=== PATIENT | female | born 1985 | race American Indian/Alaskan Native ===

== ENCOUNTER 2018-11-07 17:06 | Inpatient (IN) | payer OTHER ==
[2018-11-07] MEDS ORDERED: ZOFRAN IV PRN (19:19)
[2018-11-07] MEDS ORDERED: COLACE PO PRN (19:19)
[2018-11-07] MEDS ORDERED: MILK OF MAGNESIA PO PRN (19:19)
[2018-11-07] MEDS ORDERED: TYLENOL PO PRN (19:19)
[2018-11-07] MEDS ORDERED: MYLICON PO PRN (19:19)
[2018-11-07] MEDS ORDERED: ALUM-MAG HYDROX-SIMETH 200-200-20MG/5ML PO PRN (19:19)
[2018-11-07] MEDS ORDERED: AMBIEN PO PRN (19:19)
--- NOTE | 2018-11-07 20:26 | Ultrasound Report ---
PROCEDURE: US OB LIMITED TECHNIQUE: Real-time limited sonographic examination was performed for evaluation of for each fetus with image documentation (1 or more fetuses). HISTORY: labor COMPARISONS: None . FINDINGS: FETUS IUP: Single living intrauterine . Position: Cephalic . Placental position: Anterior, without previa . Amniotic fluid volume: Amniotic fluid index is 6.3 cm Heart rate and rhythm: 149 BPM, Regular . IMPRESSION: Amniotic fluid index is 6.3 cm This document is electronically signed by Bud Mosley MD., November 07 2018 08:24:53 PM ET
--- NOTE | 2018-11-07 20:27 | Ultrasound Report ---
PROCEDURE: US OB BPP WO NON-STRESS TECHNIQUE: Sonographic evaluation for breathing, movement, tone, and amniotic flui d volume was performed. HISTORY: Oligohydramnios COMPARISONS: None . FINDINGS: FETUS Amniotic fluid volume Normal-score 2. At least one vertical pocket >2 cm or more in vertical axis . breathing: Normal-score 2 . movement: Normal-score 2 . tone: Normal-score 2 . Score: 8 of 8 . IMPRESSION: Normal biophysical profile . This document is electronically signed by Bud Mosley MD., November 07 2018 08:25:33 PM ET
[2018-11-07] MEDS: CELESTONE SOLUSPAN IM SCH (20:30)
[2018-11-07 20:54] LABS: Basophils # (Auto) 0.1 K/mm3 (0.0-0.1); Basophils % (Auto) 0.7 % (0.0-1.8); Eosinophils # (Auto) 0.3 K/mm3 (0.0-0.4); Eosinophils % (Auto) 3.5 % (0.0-4.3); Hematocrit 39.5 % (30.3-42.9); Hemoglobin 13.6 gm/dl (10.1-14.3); Lymphocytes # (Auto) 2.5 K/mm3 (1.2-5.4); Lymphocytes % (Auto) 28.2 % (13.4-35.0); Mean Corpuscular HGB Conc 35 % (30-34); Mean Corpuscular Volume 92 fl (79-97); Monocytes # (Auto) 0.6 K/mm3 (0.0-0.8); Platelet Count 174 K/mm3 (140-440); Red Blood Count 4.28 M/mm3 (3.65-5.03); Red Cell Distribution Width 14.1 % (13.2-15.2)
[2018-11-08] MEDS: LACTATED RINGERS 1,000 ML IV SCH (05:00)
--- NOTE | 2018-11-08 09:18 | History and Physical Report ---
History of Present Illness Date of examination: 11/08/18 Date of admission: 11/07/18 21:48 Chief complaint: low amnionic fluid History of present illness: 33 yo G P at 36+4 weeks came in after US showed a low fluid of 5cm. She was called in and repeat was 6.3cm. She was admitted for observation. Past History Past Medical History: no pertinent history Past Surgical History: no surgical history Family/Genetic History: none Social history: . denies: smoking, alcohol abuse, prescription drug abuse - Obstetrical History Expected Date of Delivery: 12/04/18 Actual Gestation: 36 Week(s) 2 Day(s) : 3 Para: 2 Hx # Term Pregnancies: 2 Number of Pregnancies: 0 Spontaneous Abortions: 0 Induced : 0 Number of Living Children: 2 Medications and Allergies Allergies Allergy/AdvReac Type Severity Reaction Status Date / Time No Known Allergies Allergy Unverified 11/07/18 17:11 Active Meds: Active Medications Acetaminophen (Tylenol) 650 mg PO Q4H PRN PRN Reason: Pain MILD(1-3)/Fever >100.5/INIGUEZ Al Hydrox/Mg Hydrox/Simethicone (Alum-Mag Hydrox-Simeth [id number]/5ml) 30 ml PO Q6H PRN PRN Reason: Indigestion Betamethasone Acet/Betameth SodPhos (Celestone Soluspan) 12 mg IM Q24H [facility] Stop: 11/08/18 20:01 Last Admin: 11/07/18 20:30 Dose: 12 mg Documented by: Docusate Sodium (Colace) 100 mg PO Q12H PRN PRN Reason: Constipation Lactated Ringer's (Lactated Ringers) 1,000 mls @ 125 mls/hr IV DIRECT [facility] Last Admin: 11/08/18 05:00 Dose: 125 mls/hr Documented by: Magnesium Hydroxide (Milk Of Magnesia) 30 ml PO QHS PRN PRN Reason: Laxative Effect Multivitamins/Iron/Calcium ( Vitamin) 1 each PO QDAY [facility] Ondansetron HCl (Zofran) 4 mg IV Q6H PRN PRN Reason: Nausea And Vomiting Simethicone (Mylicon) 80 mg PO Q6H PRN PRN Reason: Gas pain Zolpidem Tartrate (Ambien) 10 mg PO ONCE PRN PRN Reason: Sleep Review of Systems All systems: negative - Vital Signs Vital signs: Vital Signs Pulse BP 81 101/56 11/07/18 17:27 11/07/18 17:27 Temp Pulse Resp BP Pulse Ox 98.3 F 90 16 96/51 11/07/18 18:05 11/08/18 08:42 11/07/18 18:05 11/08/18 08:42 - Physical Exam Breasts: Positive: normal Cardiovascular: Regular rate, Normal S1 Lungs: Positive: Clear to auscultation, Normal air movement Abdomen: Positive: normal appearance, soft, normal bowel sounds. Negative: distention, tenderness, guarding Genitourinary (Female): Positive: normal external genitalia, normal perenium Vagina: Positive: normal moisture Uterus: Positive: normal size Deep Tendon Reflex Grade: Normal +2 - Obstetrical FHR: category 1 Cervical Dilatation: 1 Cervical Effacement Percentage: 60 station: -4 Uterine Contraction Pattern: Absent Uterine Tone Measurement Phase: Resting Results Result Diagrams: 11/07/18 20:38 Abnormal lab results 11/07/18 Range/Units 20:38 MCHC 35 H (30-34) % All other labs normal. Ultrasound: report reviewed Assessment and Plan A/P IUP 36+2 weeks previous US low fluid from 5 to 6.3 s/p 1 betamethasone await next dose today BPP 03/20 consult with APARNA repeat BHARATI today
[2018-11-08] MEDS: PRENATAL VITAMIN PO SCH (10:02)
--- NOTE | 2018-11-08 12:24 | Ultrasound Report ---
ULTRASOUND OB LIMITED History: Oligohydramnios Technique: Transabdominal ultrasound with Doppler interrogation. Gestation: Single Position: Cephalic Amniotic Fluid: Slightly decreased BHARATI = 6.7 cm Heart Rate: 137 BPM
--- NOTE | 2018-11-08 12:25 | Ultrasound Report ---
ULTRASOUND BIOPHYSICAL PROFILE: History: Oligohydramnios Technique: Transabdominal ultrasound with Doppler interrogation. 0 - breathing movements 2 - movements 2 - posture and tone 2 - Qualitative amniotic fluid volume 6 - TOTAL SCORE OF POSSIBLE 8 Heart Rate (bpm) 135
--- NOTE | 2018-11-08 12:53 | Event Note ---
Date: 11/08/18 Patient had US and showed 6.7 cm BHARATI. Spoke with MFM and recommended delivery for AMA and oligohydramnios. Will await second dose of steroids and initiate IOL with cervidil.
[2018-11-08] MEDS: CELESTONE SOLUSPAN IM SCH (19:59)
[2018-11-09] MEDS ORDERED: CERVIDIL VG ONE (00:42)
[2018-11-09] MEDS: LACTATED RINGERS 1,000 ML IV SCH ×2 (12:14→19:54)
[2018-11-09] MEDS: PRENATAL VITAMIN PO SCH (12:15)
[2018-11-09] MEDS ORDERED: MINERAL OIL PO PRN (14:04)
[2018-11-09] MEDS ORDERED: BRETHINE SUB-Q PRN (14:04)
[2018-11-09] MEDS ORDERED: BRETHINE IVP PRN (14:04)
[2018-11-09] MEDS: STADOL IV PRN (14:18)
[2018-11-09] MEDS ORDERED: LACTATED RINGERS 1,000 ML IV SCH (15:00)
[2018-11-09] MEDS ORDERED: PITOCin/NS 20 UNIT/1000ML DRIP 20 UNITS/1,000 ML BAG IV SCH (15:00)
[2018-11-09] MEDS: PITOCin/NS 30 UNIT/500ML 30 UNITS/500 ML BAG IV SCH (15:27)
[2018-11-10] MEDS: LACTATED RINGERS 1,000 ML IV SCH (03:54)
--- NOTE | 2018-11-10 09:19 | Progress Note ---
Assessment and Plan Patient has been being induced for over 24 hours but is not in labor yet. Will allow a respite for shower and nourishment. Restart process later today. Subjective - Subjective Date of service: 11/10/18 Principal diagnosis: Oligohydramnios Interval history: Patient presents with oligohydramnios at 36 plus weeks. Patient received 2 doses of steroids and was advised to be induced by APA. Patient received cervidil at 238. It was removed in the afternoon. At the time she was found to be 1-2cm and pitocin was initiated. Patient reports: contractions Objective - Vital Signs Vital Signs: Vital Signs - 12hr 11/09/18 11/09/18 11/10/18 23:37 23:38 03:46 Temperature 98.4 F 98.2 F Pulse Rate 82 83 77 Respiratory 16 16 Rate Blood Pressure 88/48 92/54 97/56 - Exam Lungs: Clear to auscultation, Normal air movement Abdomen: Present: normal appearance, soft. Absent: distention, tenderness Uterus: Present: normal FHR: auscultation normal Cervical Dilatation: 1.5 Cervical Effacement Percentage: 50 station: -3 Uterine Contraction Pattern: Irregular Uterine Contraction Intensity: Moderate - Labs Labs: Abnormal Labs 11/07/18 20:38 MCHC 35 H
[2018-11-10] MEDS: PRENATAL VITAMIN PO SCH (11:07)
[2018-11-11] MEDS: PITOCin/NS 30 UNIT/500ML 30 UNITS/500 ML BAG IV SCH (08:45)
--- NOTE | 2018-11-11 10:17 | Progress Note ---
Assessment and Plan A/P IUP 36+5 weeks iol for oligo and AMA s/p cervidil GBS unknown- Amp continue with pitocin expect vaginal delivery Subjective - Subjective Date of service: 11/11/18 Principal diagnosis: Oligohydramnios Interval history: 33 yo G P at 36+4 weeks came in after US showed a low fluid of 5cm. She was called in and repeat was 6.3cm. She was admitted for observation. Patient reports: movement normal, contractions, no new complaints, no loss of fluid, no vaginal bleeding Objective - Exam Breasts: normal Cardiovascular: Regular rate, Normal S1 Lungs: Clear to auscultation, Normal air movement Abdomen: Present: normal appearance, soft, normal bowel sounds. Absent: distention, tenderness, guarding Vulva: both: normal Uterus: Present: normal, firm. Absent: bogginess, tenderness FHR: auscultation normal Cervical Dilatation: 2 Cervical Effacement Percentage: 50 station: -3 Uterine Contraction Pattern: Irregular Uterine Tone Measurement Phase: Contraction Deep Tendon Reflex Grade: Normal +2 - Labs Labs: Abnormal Labs 11/07/18 20:38 MCHC 35 H
[2018-11-11] MEDS ORDERED: AMPICILLIN/NS 2 GM/100 ML 2 GM/100 ML BAG IV ONE (11:00)
[2018-11-11] MEDS: STADOL IV PRN ×2 (12:52→17:33)
[2018-11-11] MEDS ORDERED: NARCAN 2 MG/2 ML IV PRN (14:13)
[2018-11-11] MEDS ORDERED: AMPICILLIN/NS 1 GM/50 ML 1 GM/50 ML BAG IV SCH (15:00)
[2018-11-11] MEDS ORDERED: fentaNYL-BUPIV 2 MCG/ML-0.125% 200 MCG/100 ML BAG EPIDURAL SCH (15:00)
[2018-11-11] MEDS ORDERED: PHENERGAN PR PRN ×2 (15:30→21:11)
[2018-11-11] MEDS ORDERED: ZOFRAN IV PRN ×2 (15:30→21:11)
[2018-11-11] MEDS ORDERED: NARCAN 0.4 MG/1 ML IV PRN (15:30)
[2018-11-11] MEDS ORDERED: REGLAN IV PRN (15:30)
[2018-11-11] MEDS ORDERED: BENADRYL IV PRN (15:30)
[2018-11-11] MEDS ORDERED: DILAUDID PCA 6MG/30ML IV SCH (16:00)
[2018-11-11] MEDS ORDERED: NACL 0.9% 1000 ML 1,000 ML IV SCH (16:00)
[2018-11-11 16:12] LABS: Basophils % (Auto) 0.4 % (0.0-1.8); Eosinophils % (Auto) 0.6 % (0.0-4.3); Hematocrit 37.7 % (30.3-42.9); Hemoglobin 12.9 gm/dl (10.1-14.3); Lymphocytes # (Auto) 2.6 K/mm3 (1.2-5.4); Lymphocytes % (Auto) 28.5 % (13.4-35.0); Mean Corpuscular HGB Conc 34 % (30-34); Mean Corpuscular Volume 93 fl (79-97); Monocytes # (Auto) 0.8 K/mm3 (0.0-0.8); Monocytes % (Auto) 9.3 % (0.0-7.3); Platelet Count 160 K/mm3 (140-440); Red Blood Count 4.07 M/mm3 (3.65-5.03); Red Cell Distribution Width 14.2 % (13.2-15.2)
[2018-11-11 16:41] LABS: Hepatitis C Virus Antibody Non-Reactive (NonReactive)
[2018-11-11] MEDS ORDERED: XYLOCAINE 2% INFILTRATI ONE (18:27)
[2018-11-11] MEDS ORDERED: METHERGINE IM ONE ×2 (18:49→19:48)
--- NOTE | 2018-11-11 18:57 | Procedure Note ---
OB Delivery Note - Delivery Date of Delivery: 11/11/18 Surgeon: JESSE MAYO Estimated blood loss: 300cc - Vaginal Delivery presentation: vertex Delivery position: OA Intrapartum events: PROM->1hr before delivery, decreased FHT variability Delivery induction: AROM Delivery augmentation: pitocin Delivery monitor: external FHT, external uterine Route of delivery: Delivery placenta: spontaneous Delivery cord: 3 umbilical vessels Episiotomy: none Delivery laceration: 2nd degree Delivery repair: vicryl Anesthesia: local, intravenous - A at 1 minute: 8 at 5 minutes: 9 Infant Gender: Male (3009g (6lb 10oz) @ 1823 pm)
[2018-11-11] MEDS ORDERED: MILK OF MAGNESIA PO PRN (21:11)
[2018-11-11] MEDS ORDERED: LANSINOH TP PRN ×2 (21:11)
[2018-11-11] MEDS ORDERED: PHENERGAN PO PRN (21:11)
[2018-11-11] MEDS ORDERED: PITOCin/NS 20 UNIT/1000ML DRIP 20 UNITS/1,000 ML BAG IV SCH (21:11)
[2018-11-11] MEDS ORDERED: BENADRYL PO PRN (21:11)
[2018-11-11] MEDS ORDERED: TUCKS PAD TP PRN (21:11)
[2018-11-11] MEDS ORDERED: DERMOPLAST TP PRN (21:11)
[2018-11-11] MEDS ORDERED: SODIUM CHLORIDE FLUSH SYRINGE 10 ML IV PRN (21:11)
[2018-11-11] MEDS ORDERED: TYLENOL PO PRN (21:11)
[2018-11-11] MEDS ORDERED: NORCO 5/325 PO PRN (21:11)
[2018-11-11] MEDS ORDERED: DULCOLAX PR PRN (21:11)
[2018-11-11] MEDS: FEOSOL PO SCH (21:26)
[2018-11-11] MEDS: IBUPROFEN PO SCH (21:27)
[2018-11-12] MEDS: IBUPROFEN PO SCH ×3 (05:12→23:36)
--- NOTE | 2018-11-12 08:06 | Progress Note ---
Assessment and Plan A: PPD#1 s/p at 36 wks secondary to induction for oligohydramnios P: Routine care. Subjective - Subjective Date of service: 11/12/18 Principal diagnosis: Oligohydramnios, s/p at 36 wks Interval history: Pt without complaints. She desires discharge tonight if possible. Patient reports: appetite normal, voiding normally, pain well controlled, ambulating normally : doing well Objective - Vital Signs Latest vital signs: Vital Signs Temp Pulse Resp BP BP Pulse Ox 11/12/18 04:52 97.3 F L 65 20 96/64 11/12/18 00:46 98.5 F 18 101/55 11/12/18 00:40 98.5 F 65 18 101/55 98 11/11/18 21:03 98.4 F 59 L 18 126/61 98 11/11/18 19:00 98.4 F 18 11/11/18 18:49 72 121/79 11/11/18 17:51 98.9 F 16 11/11/18 15:34 63 108/70 11/11/18 14:00 97.9 F 18 Intake and Output 11/11/18 11/12/18 11/12/18 22:59 06:59 14:59 Intake Total 73.999 360 Output Total 400 Balance 73.999 -40 Intake: IV 73.999 PITOCin/NS 30 UNIT/500ML 73.999 30 units In 500 ml @ 2 MILLIUNITS/MIN 2 mls/hr IV TITR [id number] Rx#:[id number] Intake, Free Water 360 Output: Urine 400 Void 400 Other: Total, Output Amount 400 Estimated Blood Loss 300 - Exam Breasts: Present: deferred Cardiovascular: Present: Regular rate Lungs: Present: Clear to auscultation Abdomen: Present: soft Uterus: Present: fundal height at umbilicus Extremities: Present: normal - Labs Labs: Abnormal lab results 11/11/18 Range/Units 15:49 [place]ke % (Auto) 9.3 H (0.0-7.3) %
--- NOTE | 2018-11-12 08:10 | Discharge Summary ---
Providers - Providers Date of Admission: 11/11/18 09:36 Date of discharge: 11/12/18 Attending physician: FLORES SANTANA MD 11/11/18 21:11 Consult to [facility]ver [CONS] Routine Reason For Exam: assistance with , SNS Primary care physician: FLORES SANTANA MD Hospitalization Reason for admission: induction of labor Delivery: Procedure details: Please see delivery note. Episiotomy: none Laceration: 2nd degree Other procedures: none complications: none Discharge diagnosis: delivery Jeremiah baby: male Hospital course: Pt underwent induction of labor at 36 wks secondary to oligohydramnios. She ultimately had a spontaneous vaginal delivery which she tolerated well. Her course was uncomplicated. She will follow up in 4 wks in the office. Condition at discharge: Stable Disposition: - TO HOME OR SELFCARE - Discharge Diagnoses (1) Oligohydramnios Status: Acute Qualifiers: Fetus number: single or unspecified fetus Trimester: third trimester Qualified Code(s): O41.03X0 - Oligohydramnios, third trimester, not applicable or unspecified (2) delivery after induction of labor Status: Acute (3) Advanced maternal age (AMA) in Status: Acute Plan - Discharge Medications Prescriptions: Ibuprofen 800 mg PO Q8H PRN #30 tablet PRN Reason: Pain, Moderate (4-6) HYDROcodone/APAP 5-325 [[place] 5/325] 1 each PO Q6HR PRN #20 tablet PRN Reason: Pain - Provider Discharge Summary Activity: routine, no sex for 6 weeks, no heavy lifting 4 weeks, no strenuous exercise Diet: routine Instructions: routine Additional instructions: [] Smoking cessation referral if applicable(refer to patient education folder for contact #) [] Refer to [facility] Booklet Call your doctor immediately for: * Fever > 100.5 * Heavy vaginal bleeding ( >1 pad per hour) * Severe persistent headache * Shortness of breath * Reddened, hot, painful area to leg or breast * Drainage or odor from incision. * Keep incision clean and dry at all times and follow doctor's instructions rega rding bathing/showering * PLEASE SCHEDULE YOUR SON'S CIRCUMCISION BEFORE HE IS ONE MONTH OLD.* - Follow up plan Follow up: FLORES SANTANA MD [Primary Care Provider] - 12/09/18 (Please call to schedule exam )
[2018-11-12] MEDS: FEOSOL PO SCH ×2 (10:17→21:38)
[2018-11-12 10:40] LABS: Hemoglobin 13.1 gm/dl (10.1-14.3)
[2018-11-12] MEDS ORDERED: M-M-R II VACCINE SUB-Q ONE (18:59)
[2018-11-13] MEDS: IBUPROFEN PO SCH ×2 (05:07→11:18)
[2018-11-13] MEDS ORDERED: BOOSTRIX IM ONE (06:00)
[2018-11-13 09:28] VITALS: BP 90/64
[2018-11-13] MEDS: FEOSOL PO SCH (09:34)
== END 2018-11-13 14:26 | disposition home or self-care (01) | DRG 806 ==
LOC: EDBD 17:06 → TRG 17:06 → LD 21:48 → OBSVTOIN 11-11 09:36 → OB 11-11 21:10
PROVIDERS: ADMIT Obstetrics & Gynecology; ATTEND Obstetrics & Gynecology
PROC: 10E0XZZ Delivery of Products of Conception, External Approach (ICD-10-PCS; principal; 2018-11-11)
PROC: 0KQM0ZZ Repair Perineum Muscle, Open Approach (ICD-10-PCS; 2018-11-11)
PROC: 10907ZC Drainage of Amniotic Fluid, Therapeutic from Products of Conception, Via Natural or Artificial Opening (ICD-10-PCS; 2018-11-11)
PROC: 3E0234Z Introduction of Serum, Toxoid and Vaccine into Muscle, Percutaneous Approach (ICD-10-PCS; 2018-11-12)
DX: O42.913 Preterm premature rupture of membranes, unspecified as to length of time between rupture and onset of labor, third trimester (principal); O41.03X0 Oligohydramnios, third trimester, not applicable or unspecified; Z37.0 Single live birth; O76 Abnormality in fetal heart rate and rhythm complicating labor and delivery; Z3A.36 36 weeks gestation of pregnancy; O70.1 Second degree perineal laceration during delivery; Z23 Encounter for immunization
CPT/HCPCS: 36415; 59200; 76815; 76819; 85014; 85018; 85025; 85660; 86592; 86706; 86762; 86803; 86850; 86900; 86901; 87806; G0378; J0290; J0595; J0702; J2210; J2590; J7120